=== PATIENT | male | born 1980 | race Caucasian/White ===

== ENCOUNTER 2017-12-21 08:43 | Inpatient (IN) | payer OTHER ==
[2017-12-21] MEDS ORDERED: RX INFO: IV CONTRAST WAS GIVEN 1 EACH MISC MISCELLANE PRN (08:52)
--- NOTE | 2017-12-21 08:57 | ED ---
Neuro HPI - General Chief Complaint: Neuro Symptoms/Deficit Stated Complaint: Weakness Time Seen by Provider: 12/21/17 08:43 Source: patient, RN notes reviewed Mode of arrival: ambulatory Limitations: no limitations - History of Present Illness Is the patient presenting with stroke symptoms?: Yes Initial Comments: This is a 37-year-old male with a history of recently diagnosed hypertension who states he went to bed last night around 8 PM feeling normal he woke up around 4 AM planus and difficulty walking and difficulty with speech. Of note he recently was diagnosed with the tooth abscesses on penicillin. He denies any pain anywhere denies any fevers chills nausea vomiting sweats. EMS was called he did demonstrate some slurred speech upon arrival he has some trouble moving the mouth on the right side. He denies any recent trauma. He was recently put on blood pressure medication he was found have a blood pressure of 190/124 per EMS. - Related Data Home Medications: Home Medications Medication Instructions Recorded Confirmed Atorvastatin [Lipitor] 40 mg PO HS 12/21/17 12/21/17 amLODIPine [Norvasc] 10 mg PO DAILY 12/21/17 12/21/17 cloNIDine HCL [Catapres] 0.2 mg PO BID 12/21/17 12/21/17 Allergies/Adverse Reactions: Allergies Allergy/AdvReac Type Severity Reaction Status Date / Time ragweed pollen Allergy Unknown Verified 12/21/17 09:10 Review of Systems ROS Statement: Those systems with pertinent positive or pertinent negative responses have been documented in the HPI. ROS Other: All systems not noted in ROS Statement are negative. General Exam - General Exam Comments Initial Comments: This is a well-developed well-nourished awake alert oriented times female he does demonstrate some facial asymmetry on the right. He does demonstrate some slurring of his speech. Limitations: no limitations General appearance: alert, in no apparent distress Head exam: Present: atraumatic, normocephalic Eye exam: Present: normal appearance, PERRL, EOMI. Absent: scleral icterus, conjunctival injection, periorbital swelling ENT exam: Present: TM's normal bilaterally, other (Flattening of the right nasolabial folds right facial asymmetry the forehead is spared.) Neck exam: Present: normal inspection. Absent: tenderness, meningismus, lymphadenopathy Respiratory exam: Present: normal lung sounds bilaterally. Absent: respiratory distress, wheezes, rales, rhonchi, stridor Cardiovascular Exam: Present: regular rate, normal rhythm, normal heart sounds. Absent: systolic murmur, diastolic murmur, rubs, gallop, clicks GI/Abdominal exam: Present: soft, normal bowel sounds. Absent: distended, tenderness, guarding, rebound, rigid Extremities exam: Present: normal inspection, normal capillary refill. Absent: full ROM, tenderness Back exam: Present: normal inspection Neurological exam: Present: alert, oriented X3, motor sensory deficit (Some weakness and ataxia to the right upper extremity.). Absent: CN II-XII intact Psychiatric exam: Present: normal affect, normal mood Skin exam: Present: warm, dry, intact, normal color. Absent: rash Stroke MDM - Lab Data Result diagrams: 12/21/17 08:51 12/21/17 08:51 Lab Results 12/21/17 12/21/17 12/21/17 Range/Units 08:51 08:51 08:51 WBC 11.2 H (3.8-10.6) k/uL RBC 4.82 (4.30-5.90) m/uL Hgb 14.6 (13.0-17.5) gm/dL Hct 43.8 (39.0-53.0) % MCV 90.8 (80.0-100.0) fL MCH 30.4 (25.0-35.0) pg MCHC 33.4 (31.0-37.0) g/dL RDW 13.5 (11.5-15.5) % Plt Count 223 (150-450) k/uL Neutrophils % 82 % Lymphocytes % 11 % Monocytes % 3 % Eosinophils % 2 % Basophils % 0 % Neutrophils # 9.1 H (1.3-7.7) k/uL Lymphocytes # 1.3 (1.0-4.8) k/uL Monocytes # 0.4 (0-1.0) k/uL Eosinophils # 0.3 (0-0.7) k/uL Basophils # 0.1 (0-0.2) k/uL PT (9.0-12.0) sec INR (<1.2) APTT (22.0-30.0) sec Sodium 145 (137-145) mmol/L Potassium 4.5 (3.5-5.1) mmol/L Chloride 108 H (98-107) mmol/L Carbon Dioxide 26 (22-30) mmol/L Anion Gap 11 mmol/L BUN 20 (9-20) mg/dL Creatinine 1.27 H (0.66-1.25) mg/dL Est GFR (MDRD) Af Amer >60 (>60 ml/min/1.73 sqM) Est GFR (MDRD) Non-Af >60 (>60 ml/min/1.73 sqM) Glucose 108 H (74-99) mg/dL Calcium 10.4 H (8.4-10.2) mg/dL Magnesium 1.7 (1.6-2.3) mg/dL Total Bilirubin 0.4 (0.2-1.3) mg/dL AST 18 (17-59) U/L ALT 29 (21-72) U/L Alkaline Phosphatase 30 L (38-126) U/L Total Creatine Kinase 80 (55-170) U/L CK-MB (CK-2) 0.5 (0.0-2.4) ng/mL CK-MB (CK-2) Rel Index 0.6 Troponin I 0.014 (0.000-0.034) ng/mL Total Protein 7.2 (6.3-8.2) g/dL Albumin 4.4 (3.5-5.0) g/dL 12/21/17 Range/Units 08:51 WBC (3.8-10.6) k/uL RBC (4.30-5.90) m/uL Hgb (13.0-17.5) gm/dL Hct (39.0-53.0) % MCV (80.0-100.0) fL MCH (25.0-35.0) pg MCHC (31.0-37.0) g/dL RDW (11.5-15.5) % Plt Count (150-450) k/uL Neutrophils % % Lymphocytes % % Monocytes % % Eosinophils % % Basophils % % Neutrophils # (1.3-7.7) k/uL Lymphocytes # (1.0-4.8) k/uL Monocytes # (0-1.0) k/uL Eosinophils # (0-0.7) k/uL Basophils # (0-0.2) k/uL PT 10.5 (9.0-12.0) sec INR 1.1 (<1.2) APTT 23.3 (22.0-30.0) sec Sodium (137-145) mmol/L Potassium (3.5-5.1) mmol/L Chloride (98-107) mmol/L Carbon Dioxide (22-30) mmol/L Anion Gap mmol/L BUN (9-20) mg/dL Creatinine (0.66-1.25) mg/dL Est GFR (MDRD) Af Amer (>60 ml/min/1.73 sqM) Est GFR (MDRD) Non-Af (>60 ml/min/1.73 sqM) Glucose (74-99) mg/dL Calcium (8.4-10.2) mg/dL Magnesium (1.6-2.3) mg/dL Total Bilirubin (0.2-1.3) mg/dL AST (17-59) U/L ALT (21-72) U/L Alkaline Phosphatase (38-126) U/L Total Creatine Kinase (55-170) U/L CK-MB (CK-2) (0.0-2.4) ng/mL CK-MB (CK-2) Rel Index Troponin I (0.000-0.034) ng/mL Total Protein (6.3-8.2) g/dL Albumin (3.5-5.0) g/dL - NIH Stroke Scale 1a. Level of Consciousness: (0) alert 1b. LOC Questions: (0) answers correctly 1c. LOC Commands: (0) performs tasks correctly 2. Best Gaze: (0) normal 3. Visual: (0) no visual loss 4. Facial Palsy: (1) minor paralysis 5a. Motor Arm Left: (0) no drift 5b. Motor Arm Right: (1) drift 6a. Motor Leg Left: (0) no drift 6b. Motor Leg Right: (0) no drift 7. Limb Ataxia: (0) absent 8. Sensory: (0) normal 9. Best Language: (0) no aphasia 10. Dysarthria: (1) mild/moderate dysarthria 11. Extinction/Inattention: (0) no abnormality - Thrombolytic Inclusion/Exclusion Thrombolytic Exclusion Criteria: Symptom Onset > 3 Hours - Medical Decision Making The patient does not meet criteria for TPA or interventional evaluation at this time. The symptoms started sometime after 8 PM last evening. Patient will be admitted with probably consultation I did discuss case with Dr. Lizarraga. - Radiology Data Radiology results: report reviewed, image reviewed (No acute findings are seen on CT.) - EKG Data -: EKG Interpreted by Me EKG shows normal: sinus rhythm (Sinus bradycardia rate of 53. 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 Disposition Clinical Impression: Cerebrovascular accident Disposition: ADMITTED IP TO THIS [facility] Condition: Stable Referrals: None,Stated [Primary Care Provider] - 1-2 days
[2017-12-21 09:12] LABS: Basophils # (A) 0.1 k/uL (0-0.2); Basophils % (A) 0 %; Eosinophils # (A) 0.3 k/uL (0-0.7); Eosinophils % (A) 2 %; HCT 43.8 % (39.0-53.0); HGB 14.6 gm/dL (13.0-17.5); Lymphocytes # (A) 1.3 k/uL (1.0-4.8); Lymphocytes % (A) 11 %; MCH 30.4 pg (25.0-35.0); MCHC 33.4 g/dL (31.0-37.0); MCV 90.8 fL (80.0-100.0); Mean Platelet Volume 7.1; Monocytes # (A) 0.4 k/uL (0-1.0); Monocytes % (A) 3 %; Neutrophils # (A) 9.1 k/uL (1.3-7.7); Neutrophils % (A) 82 %; Platelet Count 223 k/uL (150-450); RBC 4.82 m/uL (4.30-5.90); RDW 13.5 % (11.5-15.5); WBC 11.2 k/uL (3.8-10.6)
[2017-12-21 09:21] LABS: ALT 29 U/L (21-72); AST 18 U/L (17-59); Albumin 4.4 g/dL (3.5-5.0); Alkaline Phosphatase 30 U/L (38-126); Anion Gap 11 mmol/L; Blood Urea Nitrogen 20 mg/dL (9-20); Calcium 10.4 mg/dL (8.4-10.2); Carbon Dioxide 26 mmol/L (22-30); Chloride 108 mmol/L (98-107); Glucose 108 mg/dL (74-99); Magnesium 1.7 mg/dL (1.6-2.3); Potassium 4.5 mmol/L (3.5-5.1); Sodium 145 mmol/L (137-145); Total Bilirubin 0.4 mg/dL (0.2-1.3); Total Protein 7.2 g/dL (6.3-8.2)
[2017-12-21 09:22] LABS: INR 1.1 (<1.2); Partial Thromboplastin Time 23.3 sec (22.0-30.0); Prothrombin Time 10.5 sec (9.0-12.0)
[2017-12-21 09:50] LABS: Creatine Kinase MB 0.5 ng/mL (0.0-2.4); Troponin I 0.014 ng/mL (0.000-0.034)
--- NOTE | 2017-12-21 10:00 | XR ---
EXAMINATION TYPE: XR chest 2V DATE OF EXAM: 12/21/2017 COMPARISON: NONE HISTORY: Altered mental status and weakness. Right-sided numbness today. TECHNIQUE: Frontal and lateral views of the chest are obtained. FINDINGS: There is no focal air space opacity, pleural effusion, or pneumothorax seen. The cardiac silhouette size is upper limits of normal. The osseous structures are intact. IMPRESSION: No acute cardiopulmonary process.
--- NOTE | 2017-12-21 10:01 | CT ---
EXAMINATION TYPE: CT brain wo con DATE OF EXAM: 12/21/2017 COMPARISON: NONE HISTORY: Rt sided facial droop, slurred speech CT DLP: 1054.[address] of the brain was performed. The ventricles, basal cisterns and sulci overlying the cerebral convexities demonstrate a normal appe arance. Remote insult is noted within the right [place] radiata. Decreased attenuation is seen about the deep white matter of both cerebral hemispheres and periventricular white matter which may reflect small vessel ischemic change although demyelination is not excluded. No definite evidence for acute cortical insult. There is no evidence for intracranial hemorrhage or sulcal effacement. No mass effects are seen. Osseous calvarium is intact. If symptoms persist consider MRI as clinically warranted. IMPRESSION: 1. No acute intracranial process is seen at this time. Areas of remote insult as noted above.
--- NOTE | 2017-12-21 10:04 | CT ---
EXAMINATION TYPE: CT angio head neck DATE OF EXAM: 12/21/2017 COMPARISON: NONE HISTORY: Rt sided facial droop, slurred speech CT DLP: 245.8 mGycm CONTRAST: Performed with IV Contrast, patient injected with 65 mL of Omnipaque 350. Combination Contrast CTA cervical carotids and [place] CTA cervical carotids with 3-D recons truction Contrast CTA of the cervical carotids was performed 3-D reconstruction imaging obtained at a separate workstation. Right carotid system: Mild plaque is seen of the right common carotid artery. There is mild plaque a lso noted at the carotid bulb and proximal ICA. No significant diameter reduction. ECA is patent. Right vertebral artery appears unremarkable. Left carotid system: Mild plaque is seen of the left common carotid artery. There is mild plaque als o noted at the carotid bulb and proximal ICA. No significant diameter reduction. ECA is patent. Lef t vertebral artery appears unremarkable. IMPRESSION: 1. No significant diameter reduction to account for the patient's symptoms. CTA [place] with 3-D reconstruction Contrast CTA of the [place] was performed 3-D reconstruction imaging obtained at a separate workstation. Vertebrobasilar system as well as intracranial portions of the internal carotid arteries and their ma el[place] tributaries are patent. I do not see evidence for sizable aneurysm or vascular malformation. Pl ease note MRI provides greater sensitivity and specificity. Visualized brain appears grossly unremar kable. IMPRESSION: 1. No significant abnormality.
[2017-12-21] MEDS ORDERED: ALPRAZolam 0.25 MG TAB PO PRN (13:05)
[2017-12-21] MEDS ORDERED: ACETAMINOPHEN TAB 500 MG TAB PO PRN (13:05)
[2017-12-21] MEDS ORDERED: TEMAZEPAM 15 MG CAP PO PRN (13:05)
[2017-12-21] MEDS: SODIUM CHLORIDE 0.9% 1,000 ML IV SCH (13:54)
[2017-12-21] MEDS: ASPIRIN 325 MG TAB PO SCH (13:55)
[2017-12-21 14:33] LABS: Appearance,Urine Clear (Clear); Bilirubin,Urine Negative (Negative); Blood,Urine Negative (Negative); Color,Urine Light Yellow; Glucose,Urine (UA) Negative (Negative); Ketones,Urine Negative (Negative); Leukocyte Esterase,Urine Negative (Negative); Nitrite,Urine Negative (Negative); Protein,Urine Negative (Negative); Specific Gravity,Urine 1.035 (1.001-1.035); Urobilinogen,Urine <2.0 mg/dL (<2.0)
[2017-12-21] MEDS ORDERED: HYDROcodone/APAP 5-325MG 1 EACH TAB PO PRN (19:10)
--- NOTE | 2017-12-21 20:03 | P.CNNES ---
History of Present Illness Consult date: 12/21/17 Reason for Consult: Patient being evaluated for acute left hemispheric stroke. History of Present Illness: This patient is a 37-year-old right-handed white male who was in his usual state of health yesterday evening. Patient states he had watched the [employer] and went to bed at about 8 PM. He woke up at about 4 AM in the morning and noticed that he was having difficulty walking. He was also having some slurring of his speech. He was brought into the emergency room at 8:43 AM for further evaluation. He was seen in the ER by Dr. Emanuel. He was noted to have evidence of hypertensive urgency in the ER. He was sent for a immediate computed tomography scan of the brain which revealed no acute intracranial process. There were areas of remote insult noted. He also underwent a CTA angiogram of the head and neck which came back negative for any evidence of stenosis or other abnormalities. The patient was not a candidate for TPA or thrombectomy as his symptoms had started sometime after 8 PM last evening. He was outside of the TPA window of 3-4 hours. There was no evidence for thrombectomy treatment as his CTA angiogram was also negative. Patient apparently had recently been evaluated at a [facility] in [facility]. He was there for TIA evaluation at that time as well and was admitted there on 09/2018. According to his mother and friend was at bedside he was diagnosed by the neurosurgery team who had performed an MRI of the brain as having Binswanger 's disease. The patient was placed on aspirin and Lipitor. He has been continuing to have difficulty controlling blood pressure. As noted his blood pressure on the right limb the emergency room was elevated with hypertensive urgency. Patient states he had been started on blood pressure medication during his November visit to the hospital in [place]. He is still in the process of stabilizing his medical care with a primary care physician in [place] which is where he is living. He was up visiting family members in [facility] and was recently here to perform a job duty when he was admitted to Hospital today. The patient is noted to have dysarthric speech. He has right sided facial droop. There is right hemiparesis noted. This patient clinically has evidence of an acute left hemispheric stroke. We have recommended he undergo a MRI of the brain as well as a complete stroke evaluation. He is to continue on 1 aspirin daily for secondary stroke prevention. May consider a cardiology consultation for further assessment of his uncontrolled hypertension. We will continue close neurological follow-up for this patient. At this time we have explained to the patient that he has suffered an acute stroke. We will use the MRI as a guide to determine the extent of his stroke. He is to continue on aspirin for secondary stroke prevention. Would recommend physical therapy and speech therapy consultations with the patient as well. We will continue close neurological follow-up for him during this admission. Neurology is now been consulted for further evaluation and recommendations. Review of Systems Constitutional: Denies chills, Denies fever Eyes: denies blurred vision, denies pain Ears, nose, mouth and throat: Denies headache, Denies sore throat Cardiovascular: Denies chest pain, Denies shortness of breath Respiratory: Denies cough Gastrointestinal: Denies abdominal pain, Denies diarrhea, Denies nausea, Denies vomiting Musculoskeletal: Denies myalgias Integumentary: Denies pruritus, Denies rash Neurological: Reports aphasia, Reports balance difficulties, Reports change in speech, Reports gait dysfunction, Reports paralysis, Denies numbness, Denies weakness Psychiatric: Denies anxiety, Denies depression Endocrine: Denies fatigue, Denies weight change Past Medical History Past Medical History: Hyperlipidemia, Hypertension Additional Past Medical History / Comment(s): Binswanger disease, pt states he was recently diagnosed with HTN and has had a recent tooth abscess tx with ABX- which he did not complete-stopped taking. History of Any Multi-Drug Resistant Organisms: None Reported Past Surgical History: Hernia Repair Additional Past Surgical History / Comment(s): R inguinal hernia repair. Past Anesthesia/Blood Transfusion Reactions: No Reported Reaction Smoking Status: Current every day smoker - Past Family History Father Family Medical History: Coronary Artery Disease (CAD) Mother Family Medical History: Diabetes Mellitus Medications and Allergies Home Medications Medication Instructions Recorded Confirmed Type Atorvastatin [Lipitor] 40 mg PO HS 12/21/17 12/21/17 History amLODIPine [Norvasc] 10 mg PO DAILY 12/21/17 12/21/17 History cloNIDine HCL [Catapres] 0.2 mg PO BID 12/21/17 12/21/17 History Allergies Allergy/AdvReac Type Severity Reaction Status Date / Time ragweed pollen Allergy Unknown Verified 12/21/17 09:10 Physical Examination - Vital Signs Vital Signs: Vital Signs Temp Pulse Resp BP BP Pulse Ox 12/21/17 16:57 97.6 F 18 138/84 97 12/21/17 14:57 98.6 F 18 155/101 98 12/21/17 13:56 96.7 F L 18 146/86 99 12/21/17 12:57 96.7 F L 18 149/88 98 12/21/17 12:25 98.9 F 60 18 146/82 98 12/21/17 09:43 96 16 132/86 99 12/21/17 08:47 98.3 F 61 16 176/103 95 Intake and Output 12/21/17 12/21/17 12/21/17 06:59 14:59 22:59 Other: Weight 68.039 kg Patient Weight 12/22/17 06:59 Weight 68.039 kg - Constitutional General appearance: average body habitus, cooperative - EENT EENT: PERRL, mucous membranes moist - Respiratory Respiratory: lungs clear, normal breath sounds - Cardiovascular Cardiovascular: regular rate, normal S1, normal S2 Extremities: no peripheral edema bilaterally - Gastrointestinal Gastrointestinal: normoactive bowel sounds - Integumentary Integumentary: normal - Neurologic Cranial nerve examination: PERRL, EOMI, VFF, V1/V2/V3 grossly intact, tongue midline, intact gag reflex, facial droop (Patient has a right upper motor neuron facial weakness pattern.), normal palatal elevation Speech examination: motor aphasia Sensorimotor examination: hemiparesis Motor examination - right side: 2/5: biceps, triceps, wrist flexion, wrist extension, schedule announcer, hip flexors, knee extensors, dorsiflexion, toe extension (EHL) , plantarflexion Motor examination - left side: 4/5: biceps, triceps, wrist flexion, wrist extension, schedule announcer, hip flexors, knee extensors, dorsiflexion, toe extension (EHL) , plantarflexion Detailed sensory examination: intact Reflex and gait examination: intact Reflexes: 1+: ankle, bicep, knee, tricep - Musculoskeletal Musculoskeletal: no pain - Psychiatric Psychiatric: mood/affect appropriate, cooperative Results - Laboratory Findings CBC and BMP: 12/21/17 08:51 12/21/17 08:51 Abnormal Lab Findings: Abnormal Labs 12/21/17 12/21/17 08:51 08:51 WBC 11.2 H Neutrophils # 9.1 H Chloride 108 H Creatinine 1.27 H Glucose 108 H Calcium 10.4 H Alkaline Phosphatase 30 L Assessment and Plan (1) Acute ischemic left MCA stroke Current Visit: Yes Status: Acute Code(s): I63.512 - CEREB INFRC D/T UNSP OCCLS OR STENOS OF LEFT MID CEREB ART SNOMED Code(s): 122600781 (2) Dysarthria Current Visit: Yes Status: Acute Code(s): R47.1 - DYSARTHRIA AND ANARTHRIA SNOMED Code(s): 6384989 (3) Binswanger's disease Current Visit: Yes Status: Acute Code(s): I67.3 - PROGRESSIVE VASCULAR LEUKOENCEPHALOPATHY SNOMED Code(s): 55308718 (4) Essential hypertension Current Visit: Yes Status: Acute Code(s): I10 - ESSENTIAL (PRIMARY) HYPERTENSION SNOMED Code(s): 27874615 Plan: This patient is a 37-year-old right-handed white male who was brought into the emergency room early this morning with symptoms of acute speech impairment and difficulty with ambulation. Apparently he went to bed at 8 PM yesterday evening after watching the [employer] on television. That last known well time was 8 PM yesterday evening. He woke up this morning at about 4 AM and noticed that he was having difficulty walking. His seem to worsen and EMS was called to the home. He was noted to have some slurring speech when EMS arrived. Blood pressure was very elevated. Patient was brought into the emergency room at [facility]. He was seen in the ER by Dr. Emanuel. Since his neurological deficits occurred sometime after 8 PM the exact time of onset of symptoms is unknown. He was not a candidate for TPA or thrombectomy. He was outside of the TPA window of 3 hours. He was admitted for a full stroke workup. Patient did undergo a computed tomography scan of the brain as well as a CTA angiogram of the head and neck. The CT of the brain was reported negative for any acute changes. Remote area of insult was noted. CT angiogram was negative. Patient's neurological exam findings indicate right upper motor neuron facial weakness. There is a right pronator drift and right-sided hemiparesis. He does have some dysarthric speech. His clinical findings are consistent with an acute left MCA stroke. We are recommending MRI /MRA of the brain to be done for further evaluation. He should be maintained on aspirin daily for secondary stroke prevention. We will check his lipid profile and total cholesterol level. Would recommend physical therapy and speech therapy assessment for the patient as well. Case was discussed at length with the patient and his mother who was at bedside and a friend. All of their questions were answered. They are aware of his guarded condition and findings suggesting acute stroke. His overall prognosis at this time remains guarded. We will continue close neurological follow-up with this patient during this admission. Time with Patient: Greater than 30
[2017-12-21] MEDS ORDERED: ATORVASTATIN 40 MG TAB PO SCH (21:00)
[2017-12-21] MEDS: NICOTINE 14MG/24HR PATCH TRANSDERM SCH (21:16)
[2017-12-21] MEDS: HEPARIN SODIUM,PORCINE 5,000 UNIT/ML 1 ML VIAL SQ SCH (21:19)
[2017-12-21] MEDS: cloNIDine HCL 0.2 MG TAB PO SCH (21:26)
--- NOTE | 2017-12-22 00:08 | HP ---
HISTORY AND PHYSICAL DATE OF SERVICE: 12/21/2017 CHIEF COMPLAINTS: Weakness of the right side of the right side of the body as well as facial deviation. HISTORY OF PRESENT ILLNESS: This 37-year-old gentleman with a past medical history of hypertension, hyperlipidemia, history of Binswanger disease, anxiety, depression being followed by a primary physician in [place], is living in [place]. The patient was working between [place] and [place] for the last month. 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 The patient came to [facility] yesterday and the last night before going to sleep, the patient noted some weakness of the right side of the body and right facial deviation, but patient decided to come to the hospital this morning and the patient presented around 8:43. The patient woke up this morning at 4:00 a.m. Patient was dysarthric, also. In the ER, the patient underwent a CT scan of the brain which showed no acute intracranial process. Area of remote insult was noted within the right calhoun radiata and decreased attenuation was also seen in the deep white matter. Otherwise, the patient admitted for further evaluation and treatment. There is no history of fever, rigors. No history of headache, loss of consciousness, seizures. PAST MEDICAL HISTORY: History of hypertension, hyperlipidemia, history of Binswanger disease, history of hypertension, anxiety, depression. MEDICATIONS PRIOR TO ADMISSION: Include home medications are: 1. Catapres 0.2 p.o. b.i.d. 2. Norvasc 10 mg p.o. daily. 3. Lipitor 40 mg q.h.s. ALLERGIES: Are RAGWEED, POLLEN. FAMILY HISTORY: Coronary artery disease in the family. SOCIAL HISTORY: History of smoking. Occasional alcohol and occasional THC. REVIEW OF SYSTEMS: ENT: Mentioned earlier. CARDIOVASCULAR: No angina or palpitations. ENT: No diminished hearing, diminished vision. CARDIOVASCULAR: No angina, palpitations. RESPIRATORY: As mentioned earlier. GI: No nausea or vomiting. : No dysuria. NERVOUS: As mentioned earlier. ALLERGY/IMMUNOLOGY: No asthma or hay fever. MUSCULOSKELETAL: As mentioned earlier. HEMATOLOGY/ONCOLOGY: No history of anemia. ENDOCRINE: No diabetes, hypothyroidism. CONSTITUTIONAL: As mentioned earlier. DERMATOLOGY: Negative. RHEUMATOLOGY: Negative. PSYCHIATRY: As mentioned earlier. PHYSICAL EXAM: Alert and oriented x3. Pulse is 60, blood pressure 143/82, respirations 18, temperature 98.9, pulse ox 98% on room air. HEENT: Conjunctivae normal. Oral mucosa moist. Right facial paralysis present. NECK: No jugular venous distention. No carotid bruits. No lymph node enlargement. CARDIOVASCULAR: S1, S2 muffled. No S3. No S4. RESPIRATORY: Breath sounds diminished in the bases. No rhonchi. No crackles. ABDOMEN: Soft, nontender. No mass palpable. LEGS: No edema. No swelling. NERVOUS SYSTEM: Higher functions as mentioned earlier. Cranial nerves: Significant weakness and flattening of the right side of the face present, both upper and lower parts. Otherwise, other cranial nerve appear to be normal and significant weakness over the right upper and lower limbs also present as compared to the left side. Reflexes are diminished. SKIN: No ulcer, rash, bleeding. No sensory abnormalities. LYMPHATIC: No lymph node palpable in neck or axillae. LAB: WBC 7.8, hemoglobin is 14.6. Creatinine 1.27. ASSESSMENT: 1. Acute stroke involving the left hemisphere causing right hemiparesis. 2. Increased creatinine with possible acute kidney disease. 3. Increased calcium. 4. Increased WBC. 5. Hyperlipidemia. 6. Hyperlipidemia. 7. History of Binswanger disease. 8. History of tooth abscess. 9. History of hernia repair. 10.Anxiety, depression. 11.History of THC. RECOMMENDATIONS AND DISCUSSION: In this 37-year-old gentleman who presented with multiple complex medical issues, will monitor the patient closely. Continue the current medical management and symptomatic treatment. Otherwise at this time, antiplatelet agents, complete neurovascular workup, neuro checks. Patient has significant weakness on the right side. Overall prognosis extremely guarded. I will get a neurology consultation. I would also recommend a 2D echo, carotid Doppler, and as well as an MRI and MRA of the brain, also. The patient already underwent a CT angiography. The patient is not thought to be a candidate for any tPA and the CT angiography showed no significant abnormality. Overall prognosis guarded as mentioned earlier and we will monitor blood pressure also. Further recommendations to follow. See orders for further details. The case was discussed the patient, who understands and agrees. MMODL / IJN: [id number] /
[2017-12-22 05:48] LABS: Basophils % (A) 1 %; Eosinophils # (A) 0.4 k/uL (0-0.7); Eosinophils % (A) 5 %; HCT 41.6 % (39.0-53.0); HGB 13.4 gm/dL (13.0-17.5); Lymphocytes # (A) 2.4 k/uL (1.0-4.8); Lymphocytes % (A) 27 %; MCH 30.1 pg (25.0-35.0); MCHC 32.3 g/dL (31.0-37.0); MCV 93.2 fL (80.0-100.0); Mean Platelet Volume 7.3; Monocytes # (A) 0.5 k/uL (0-1.0); Monocytes % (A) 6 %; Neutrophils # (A) 5.2 k/uL (1.3-7.7); Neutrophils % (A) 60 %; Platelet Count 188 k/uL (150-450); RBC 4.47 m/uL (4.30-5.90); RDW 13.4 % (11.5-15.5); WBC 8.8 k/uL (3.8-10.6)
[2017-12-22] MEDS: SODIUM CHLORIDE 0.9% 1,000 ML IV SCH ×2 (05:51→16:12)
[2017-12-22 05:58] LABS: Anion Gap 9 mmol/L; Blood Urea Nitrogen 16 mg/dL (9-20); Calcium 9.5 mg/dL (8.4-10.2); Carbon Dioxide 25 mmol/L (22-30); Chloride 109 mmol/L (98-107); Cholesterol 98 mg/dL (<200); Glucose 93 mg/dL (74-99); HDL Cholesterol 31 mg/dL (40-60); LDL Cholesterol,Calculated 49 mg/dL (0-99); Potassium 4.2 mmol/L (3.5-5.1); Sodium 143 mmol/L (137-145); Triglycerides 90 mg/dL (<150)
[2017-12-22] MEDS ORDERED: PANTOPRAZOLE 40 MG TABLET PO SCH (07:30)
[2017-12-22] MEDS ORDERED: NICOTINE 14MG/24HR PATCH TRANSDERM SCH (09:00)
[2017-12-22] MEDS ORDERED: amLODIPine 10 MG TAB PO SCH (09:00)
--- NOTE | 2017-12-22 10:15 | MR ---
EXAMINATION TYPE: MR angio head wo con DATE OF EXAM: 12/22/2017 COMPARISON: 12/21/2017 CT brain HISTORY: stroke TECHNIQUE: Utilizing 3-D [id number] intracranial MRA of the [place] was performed. Exam severely l imited due to motion artifact. FINDINGS: The vertebrobasilar and carotid systems are patent. There is no sizable aneurysm or vascular malform ation. There is a hypoplastic A1 segment of the right anterior cerebral artery. Left vertebral artery is dominant. IMPRESSION: 1. No evidence of vascular malformation or sizable aneurysm. MRI of the brain with and without contrast EXAM DATE: 12/22/2017 HISTORY: Headaches. TECHNIQUE: T1-weighted sagittal, T2, FLAIR, and diffusion axial, postcontrast T1 axial and coronal vi ews of the brain are submitted. CONTRAST: 6.5 mL Gadavist FINDINGS: Exam limited by motion artifact There is abnormal signal on diffusion imaging within the left basal ganglia extending into the deep w lisseth matter adjacent to the left lateral ventricle compatible with acute ischemia. No significant mid line shift. Additional small focus of abnormal signal involving the medial temporal lobe measuring 4 mm not excluded.. The ventricles, basal cisterns, and sulci overlying the convexities are consistent with the patient's age. There is no mass effect or enhancing mass. Craniocervical junction maintained. Sella turcica has a normal appearance. No evidence of cerebellopo ntine angle mass. Changes of chronic sinusitis noted. WHITE MATTER: There is diffuse abnormal signal within the white matter bilaterally. Confluent and gre ater than 40 areas of abnormal signal the white matter are seen. Abnormal signal involving the alvin i s also noted extending into the right cerebellar peduncle. IMPRESSION: 1. Abnormal signal on diffusion within the left temporal lobe, basal ganglia and deep white matter on the left. Most likely etiology is acute ischemia. There is extensive white matter changes bilaterall y which may been the basis of additional areas of remote ischemia. Demyelinating process not excluded correlate clinically. Report called to patient's nurse Roas. 2. Correlate for previous brainstem infarct. Demyelinating process also in the differential diagnosis .
--- NOTE | 2017-12-22 10:15 | MR ---
See dictation MRA brain.
--- NOTE | 2017-12-22 10:18 | ECHOF ---
Referral Reason:CVA MEASUREMENTS -------- HEIGHT: 170.2 cm WEIGHT: 68.0 kg BP: 129/68 IVSd: 1.3 cm (0.6 - 1.1) LVIDd: 4.4 cm (3.9 - 5.3) LVPWd: 1.1 cm (0.6 - 1.1) IVSs: 1.5 cm LVIDs: 3.0 cm LVPWs: 1.3 cm LA Diam: 3.2 cm (2.7 - 3.8) LAESV Index (A-L): 22.74 ml/m Ao Diam: 3.5 cm (2.0 - 3.7) AV Cusp: 1.8 cm (1.5 - 2.6) LA Diam: 2.9 cm (2.7 - 3.8) MV EXCURSION: 15.228 mm (> 18.000) MV EF SLOPE: 94 mm/s (70 - 150) EPSS: 0.2 cm MV E Larry: 0.97 m/s MV DecT: 221 ms MV A Larry: 0.44 m/s MV E/A Ratio: 2.21 RAP: 5.00 mmHg RVSP: 12.36 mmHg FINDINGS -------- Sinus rhythm. This was a technically good study. The left ventricular size is normal. There is mild concentric left ventricular hypertrophy. Overa ll left ventricular systolic function is normal with, an EF between 55 - 60 %. The right ventricle is normal in size. Normal LA size by volume 22+/-6 ml/m2. The right atrial size is normal. The aortic valve is trileaflet, and appears structurally normal. No aortic stenosis or regurgitation. The mitral valve is normal. Mild mitral regurgitation is present. Mild tricuspid regurgitation present. There is no evidence of pulmonary hypertension. The right v entricular systolic pressure, as measured by Doppler, is 12.36mmHg. Trace/mild (physiologic) pulmonic regurgitation. The aortic root size is normal. There is no pericardial effusion. CONCLUSIONS -------- 1. Sinus rhythm. 2. This was a technically good study. 3. The left ventricular size is normal. 4. There is mild concentric left ventricular hypertrophy. 5. Overall left ventricular systolic function is normal with, an EF between 55 - 60 %. 6. Normal LA size by volume 22+/-6 ml/m2. 7. The aortic valve is trileaflet, and appears structurally normal. No aortic stenosis or regurgitati on. 8. Mild mitral regurgitation is present. 9. Mild tricuspid regurgitation present. 10. There is no evidence of pulmonary hypertension. 11. Trace/mild (physiologic) pulmonic regurgitation. 12. The aortic root size is normal. 13. There is no pericardial effusion. STOGIE PACKER: Rosey Ibanez RDCS
[2017-12-22] MEDS: cloNIDine HCL 0.2 MG TAB PO SCH (12:00)
[2017-12-22] MEDS: HEPARIN SODIUM,PORCINE 5,000 UNIT/ML 1 ML VIAL SQ SCH (12:00)
[2017-12-22] MEDS: NICOTINE 14MG/24HR PATCH TRANSDERM SCH (12:01)
[2017-12-22] MEDS: ASPIRIN 325 MG TAB PO SCH (12:08)
--- NOTE | 2017-12-22 12:59 | PN ---
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 The patient also had a previous diagnosis of Binswanger disease. Currently the patient has significant dense stroke on the right side. Dr. Margaret Ornelas from neurology is following the patient closely. Head MRI and MRA showed significant lesions in the left temporal basal ganglia deep white matter changes. Dr. Ornelas is planning to talk with [facility] for further evaluation and treatment. The family would like the patient to be transferred to . No chest pain or palpitation. PHYSICAL EXAM: On exam, alert and oriented x3. Pulse 45, blood pressure 172/94, respirations 14, temperature 97.5, pulse ox 94% on 5 L. HEENT: Conjunctivae normal. NECK: No jugular venous distention. CARDIOVASCULAR: S1 and S2 muffled. RESPIRATORY: Breath sounds diminished at the bases. A few scattered rhonchi. No crackles. ABDOMEN: Soft, nontender. LEGS: No edema. NERVOUS SYSTEM: Significant dense weakness on the right side. LABS: CBC within normal limits and the creatinine is 1.3. ASSESSMENT: 1. Acute stroke involving the left hemisphere causing right hemiparesis, rule out demyelination. 2. Increased creatinine, possibly chronic kidney disease stage 3. 3. Previous history Binswanger disease. 4. Increased calcium. 5. Increased WBC. 6. Hyperlipidemia. 7. History of tooth abscess. 8. History hernia repair. 9. Anxiety, depression. 10.History of THC. RECOMMENDATIONS AND DISCUSSION: This 37-year-old gentleman who presented with multiple complex medical issues, we will monitor the patient closely. Continue the current medications and symptomatic treatment. Otherwise at this time, MRI findings are noted. Discussed with Dr. Ornelas at length. Discussed with patient's family service caseworker. We will contact [facility] for possible transfer. Otherwise we will proceed with lumbar puncture and further studies for possible demyelinating disease. The overall prognosis extremely guarded because of multiple complex medical issues. Discussed with the patient who understands and agrees. Further recommendations to follow. MMODL / IJN: [id number] /
[2017-12-22 14:20] VITALS: RESP 16
[2017-12-22 15:17] LABS: Rheumatoid Factor 6 IU/mL (0-15)
[2017-12-22 16:19] VITALS: BP 126/82; PULSE 54; TEMP 97.6
--- NOTE | 2017-12-22 19:27 | DS ---
DISCHARGE SUMMARY FINAL DIAGNOSES: 1. Acute stroke involving the left hemisphere causing right hemiparalysis. Rule out demyelination. 2. Increased creatinine, possibly chronic kidney disease, stage III. 3. Multiple possible white matter changes, possibly binswanger disease. 4. Increased calcium. 5. Increased white count. 6. Hyperlipidemia. 7. History of tooth abscess. 8. History of hernia repair. 9. Anxiety, depression. 10.History of tetrahydrocannabinol. DISCHARGE DISPOSITION: The patient is being transferred to [facility] per the suggestion of Dr. Orlando Ornelas, Neurology. HISTORY OF PRESENT ILLNESS: This 37-year-old gentleman, originally from [place], was admitted with features of weakness on the right side caused possibly by left hemispheric stroke. Basal ganglia lesion was noted. MRA also showed multiple other white matter changes; possible demyelination needs to be considered. Dr. Ornelas discussed the patient with the [facility] and the patient was transferred to [facility] for further evaluation and treatment. Please see the medication reconciliation for list of medications. Prognosis remains guarded, generally stable. MMODL / IJN: [id number] /
--- NOTE | 2017-12-24 11:06 | EEG ---
ELECTROENCEPHALOGRAM REPORT DATE OF EE12/22/2017. REFERRING PHYSICIAN: Dr. Lizarraga. ATTENDING PHYSICIAN: Dr. Lizarraga. CONSULTING INTERPRETING PHYSICIAN: Dr. Jacqueline Ornelas. ELECTROENCEPHALOGRAPHIC EXAMINATION: INDICATION FOR EXAMINATION: This patient is a 37-year-old male being about being evaluated for acute left hemispheric stroke. The patient presents with right-sided weakness and right facial droop. AGE: [age]. EEG FINDINGS: A routine 21 channel awake digital EEG recording was accomplished utilizing the 10-20 international system with bipolar and referential montages. The background activity in the most alert resting state consists of a low to medium amplitude, fairly well developed and well sustained 7-8 Hz activity over the posterior head regions. This posterior rhythm attenuates to eye opening. There is a small amount of low amplitude 18-20 Hz beta activity seen maximally over the anterior head regions. Muscle and movement artifact was observed on a few occasions during the tracing. Hyperventilation was not performed. Photic stimulation at flash frequencies of 2-30 Hz produced a good symmetrical occipital driving response. No epileptiform discharges were seen. IMPRESSION: This EEG is within normal limits for the patient's age. The EEG failed to reveal any focal, lateralized, or epileptiform abnormalities. Clinical correlation is recommended. MMODL / IJN: [id number] /
== END 2017-12-22 16:45 | disposition short-term general hospital (02) | DRG 65 ==
LOC: EC 08:43 → 6SEL 11:59
PROVIDERS: ADMIT Hospitalist; ATTEND Hospitalist
DX: I63.512 Cerebral infarction due to unspecified occlusion or stenosis of left middle cerebral artery (principal); G81.91 Hemiplegia, unspecified affecting right dominant side; I67.3 Progressive vascular leukoencephalopathy; N18.3 Chronic kidney disease, stage 3 (moderate); R40.2362 Coma scale, best motor response, obeys commands, at arrival to emergency department; R40.2142 Coma scale, eyes open, spontaneous, at arrival to emergency department; R40.2252 Coma scale, best verbal response, oriented, at arrival to emergency department; R29.703 NIHSS score 3; E78.5 Hyperlipidemia, unspecified; I12.9 Hypertensive chronic kidney disease with stage 1 through stage 4 chronic kidney disease, or unspecified chronic kidney disease; I16.0 Hypertensive urgency; F41.9 Anxiety disorder, unspecified; F32.9 Major depressive disorder, single episode, unspecified; R29.810 Facial weakness; R26.2 Difficulty in walking, not elsewhere classified; R47.1 Dysarthria and anarthria; R47.81 Slurred speech; F17.200 Nicotine dependence, unspecified, uncomplicated; Z91.048 Other nonmedicinal substance allergy status; Z79.899 Other long term (current) drug therapy
CPT/HCPCS: 36415; 70450; 70496; 70498; 70544; 70553; 71046; 80048; 80053; 80061; 81003; 82550; 82553; 83735; 84484; 85025; 85610; 85652; 85730; 86038; 86140; 86431; 93005; 93306; 95816; 99285